=== PATIENT | male | born 1985 | race Caucasian/White ===

== ENCOUNTER 2016-06-26 15:06 | Emergency (ER) | payer OTHER ==
[2016-06-26] MEDS ORDERED: Ativan 2 MG/1 ML VIAL IV ONE (15:28)
[2016-06-26] MEDS ORDERED: solu-MEDROL 125 MG IV ONE (15:29)
[2016-06-26] MEDS ORDERED: DUONEB 0.5-3 MG/3 ml Neb IH ONE ×2 (15:29→15:39)
[2016-06-26] MEDS ORDERED: Ativan 2 MG/1 ML VIAL ONE (15:32)
[2016-06-26] MEDS ORDERED: solu-MEDROL 125 MG ONE (15:33)
--- NOTE | 2016-06-26 15:35 | ERPHSYRPT ---
- History of Present Illness Time Seen by Provider: 06/26/16 15:22 Source: patient Patient Subjective Stated Complaint: PT REPORTS PRODUCTIVE COUGH WORSENING OVER LAST FEW WEEKS-DENIES FEVER-REPORTS BROWN TO YELLOW SPUTUM-REPORTS CHRONIC BACK PAIN THAT IS NORMAL FOR PT Triage Nursing Assessment: PT PINK WARM ET DRY-WHEEZES NOTED THROUGHOUT-NO RETRACTIONS NOTED-PT AMBULATORY WITH NO DIFFICULTY Physician History: CC: wheezing Hx: 30 y/o male smoker with hx of asthma. He has 2 week of cough, wheezing and increased shortness of breath. No fever or chills. He has hx of anxiety. Uses nebs at home. Hx of HTN that is treated per Dr Ramos. Allergies/Adverse Reactions: No Known Drug Allergies Allergy (Verified 06/26/16 15:11) Home Medications: Lisinopril 10 mg [Zestril 10 MG] 10 mg PO DAILY 06/04/16 [History] Hx Tetanus, Diphtheria Vaccination/Date Given: No Hx Influenza Vaccination/Date Given: No Hx Pneumococcal Vaccination/Date Given: No Immunizations Up to Date: Yes - Review of Systems Constitutional: Malaise, No Fever, No Chills Eyes: No Symptoms Ears, Nose, & Throat: No Symptoms Respiratory: Cough, Dyspnea, Wheezing Cardiac: No Chest Pain Abdominal/Gastrointestinal: No Abdominal Pain, No Nausea, No Vomiting Genitourinary Symptoms: No Dysuria Skin: No Rash Neurological: No Headache All Other Systems: Reviewed and Negative - Past Medical History Pertinent Past Medical History: Yes Neurological History: Migraines ENT History: No Pertinent History Cardiac History: Hypertension Respiratory History: Asthma Endocrine Medical History: No Pertinent History Musculoskeletal History: Degenerative Disk Disease, Osteoarthritis GI Medical History: No Pertinent History History: No Pertinent History Psycho-Social History: Anxiety, Depression Male Reproductive Disorders: No Pertinent History - Past Surgical History Past Surgical History: No Neuro Surgical History: No Pertinent History Cardiac: No Pertinent History Respiratory: No Pertinent History Gastrointestinal: No Pertinent History Genitourinary: No Pertinent History Musculoskeletal: No Pertinent History Male Surgical History: No Pertinent History - Social History Smoking Status: Current every day smoker How long have you smoked: YRS Exposure to second hand smoke: No Alcohol Use: None Drug Use: none Patient Lives Alone: No Significant Family History: no pertinent family hx - Nursing Vital Signs Nursing Vital Signs: Initial Vital Signs Temperature 98.7 F Temperature Source Oral Pulse Rate 97 Respiratory Rate 18 Blood Pressure [Right Arm] 136/78 Pain Intensity 0 - Physical Exam General Appearance: alert Eye Exam: PERRL/EOMI Neck Exam: normal inspection, non-tender, supple Respiratory Exam: wheezing, No respiratory distress Cardiovascular/Chest Exam: normal heart sounds, regular rate/rhythm Abdominal/Gastrointestinal Exam: soft, No tenderness, No distention Extremity Exam: non-tender, normal range of motion Neurologic Exam: alert, oriented x 3, cooperative, sensation nml, No motor deficits Skin Exam: warm, dry, No rash SpO2 Interpretation: normal SpO2: 98 Oxygen Delivery: Room Air - Course Nursing assessment & vital signs reviewed: Yes - Radiology Exams cxr X-ray Interpretation: Reviewed by me, Negative Ordered Tests: Active Orders 24 hr Category Date Time Status IV Insertion STAT Care 06/26/16 15:28 Active CHEST 2 VIEWS (PA AND LAT) Stat Exams 06/26/16 15:29 Taken BMP Stat Lab 06/26/16 15:15 Completed CBC W DIFF Stat Lab 06/26/16 15:15 Completed Peak Expiratory Flow Rate ONCE RT 06/26/16 15:29 Completed Respiratory Nebulizer STAT RT 06/26/16 15:30 Completed Medication Summary Discontinued Medications Generic Name Dose Route Start Last Admin Trade Name Freq PRN Reason Stop Dose Admin Albuterol/Ipratropium 3 ml 06/26/16 15:29 06/26/16 15:56 Duoneb 0.5-3 Mg/3 Ml Neb IH 06/26/16 15:30 3 ml STAT ONE Administration Albuterol/Ipratropium Confirm 06/26/16 15:39 Duoneb 0.5-3 Mg/3 Ml Neb Administered 06/26/16 15:40 Dose 3 ml IH .STK-MED ONE Lorazepam 1 mg 06/26/16 15:28 06/26/16 15:37 Ativan 2 Mg/1 Ml Vial IV 06/26/16 15:29 1 mg STAT ONE Administration Lorazepam Confirm 06/26/16 15:32 Ativan 2 Mg/1 Ml Vial Administered 06/26/16 15:33 Dose 2 mg .ROUTE .STK-MED ONE Methylprednisolone Sodium Succinate 125 mg 06/26/16 15:29 06/26/16 15:37 Solu-Medrol 125 Mg IV 06/26/16 15:30 125 mg STAT ONE Administration Methylprednisolone Sodium Succinate Confirm 06/26/16 15:33 Solu-Medrol 125 Mg Administered 06/26/16 15:34 Dose 125 mg .ROUTE .STK-MED ONE Lab/Rad Data: Laboratory Result Diagrams 06/26/16 15:15 06/26/16 15:15 Laboratory Results 06/26/16 06/26/16 Range/Units 15:15 15:15 WBC 11.4 H (4.0-10.5) K/mm3 RBC 5.25 (4.1-5.6) M/mm3 Hgb 16.1 (12.5-18.0) gm/dl Hct 44.9 (42-50) % MCV 85.5 (78-100) fl MCH 30.7 (26-32) pg MCHC 35.9 (32-36) g/dl RDW 12.7 (11.5-14.0) % Plt Count 352 (150-450) K/mm3 MPV 8.7 (6-9.5) fl Gran % 49.3 (36.0-66.0) % Lymphocytes % 31.3 (24.0-44.0) % Monocytes % 10.9 (0.0-12.0) % Eosinophils % 7.8 H (0.00-5.0) % Basophils % 0.7 (0.0-0.4) % Basophils # 0.08 (0-0.4) Sodium 137 (136-145) mEq/L Potassium 3.5 (3.5-5.1) mEq/L Chloride 99 (98-107) mEq/L Carbon Dioxide 29.1 (21-32) mEq/L Anion Gap 12.6 (5-15) MEQ/L BUN 10 (9-20) mg/dL Creatinine 0.96 (0.55-1.30) mg/dl Estimated GFR > 60 ML/MIN Glucose 91 (70-110) MG/DL Calcium 9.0 (8.5-10.1) mg/dL - Progress Progress Note: 06/26/16 16:40 PEFR over 500. Good air exchange after neb. Will release with instr. Counseled pt/family regarding: lab results, diagnosis, need for follow-up, rad results - Departure Time of Disposition: 16:40 Departure Disposition: Home Clinical Impression: Acute asthmatic bronchitis Condition: Stable Critical Care Time: No Referrals: BARRY RAMOS [Primary Care Provider] - Instructions: Asthma -- Adult, Bronchitis Additional Instructions: Use your nebs every 4 hours as instructed. Stop smoking. Rx dozycycline. Rx medrol dose pack. Follow up next week with Dr Ramos. No driving tonite. Prescriptions: Doxycycline Hyclate [Vibramycin] 1 cap PO BID #20 capsule Methylprednisolone Packet [Medrol Dosepack] 4 mg PO UD #30 packet
[2016-06-26 15:45] LABS: BASOPHIL % 0.7 % (0.0-0.4); Eosinophil % 7.8 % (0.00-5.0); Granulocytes % 49.3 % (36.0-66.0); Lymphocytes % 31.3 % (24.0-44.0); Mean Cell Volume 85.5 fl (78-100); Mean Corpuscular Hemoglobin 30.7 pg (26-32); Mean Platelet Volume 8.7 fl (6-9.5); Monocytes % 10.9 % (0.0-12.0); Platelet Count 352 K/mm3 (150-450); Red Blood Count 5.25 M/mm3 (4.1-5.6); Red Cell Distribution Width 12.7 % (11.5-14.0); White Blood Count 11.4 K/mm3 (4.0-10.5)
[2016-06-26 16:03] LABS: ANION GAP 12.6 MEQ/L (5-15); BLOOD UREA NITROGEN 10 mg/dL (9-20); CHLORIDE 99 mEq/L (98-107); Carbon Dioxide 29.1 mEq/L (21-32); Glucose 91 MG/DL (70-110); Potassium 3.5 mEq/L (3.5-5.1); SODIUM 137 mEq/L (136-145)
[2016-06-26 16:57] VITALS: BP 121/81; PULSE 83; O2SAT 94
--- NOTE | 2016-06-26 19:23 | XRAY ---
Indication: Short of breath, cough, and wheezing. Asthma. Comparison: March 22, 2015 PA/lateral chest again demonstrates normal heart, lungs, and bony thorax.
== END 2016-06-26 16:57 | disposition home or self-care (01) ==
LOC: ED 15:06
DX: J45.909 Unspecified asthma, uncomplicated (principal)
CPT/HCPCS: 36000; 36415; 71020; 80048; 85025; 94150; 94640; 96374; 96375; 99283; J2060; J2930

== ENCOUNTER 2016-10-19 09:17 | Emergency (ER) | payer OTHER ==
[2016-10-19] MEDS ORDERED: DUONEB 0.5-3 MG/3 ml Neb IH ONE ×2 (09:38→09:40)
[2016-10-19] MEDS ORDERED: solu-MEDROL 125 MG IV ONE (09:38)
--- NOTE | 2016-10-19 09:43 | ERPHSYRPT ---
- History of Present Illness Time Seen by Provider: 10/19/16 09:37 Source: patient Exam Limitations: no limitations Patient Subjective Stated Complaint: PT REPORTS PRODUCTIVE COUGH UNKOWN COLOR OF SPUTUM FOR A FEW DAYS-STATES THERE IS PAIN TO RIBS ET CHEST-REPORTS SOB- INCREASING WITH MOVEMENT-UNSURE OF FEVER Triage Nursing Assessment: PT PALE DIAPHOETIC ET WARM UPON ARRIVAL-PURSED LIP BREATHING-RESP LABORED-WHEEZES NOTED THROUGHOUT-PT ABLE TO SPEAK IN COMPLETE SENTENCES-PT AMBULATORY TO ED ROOM Physician History: The patient is a 30-year-old male who complains of a cough for several days with low rib pain on each side in the front especially when he coughs. Yesterday he went to bed early at 2 PM and woke up at 6 PM with rib pain. He went back to sleep and woke up at midnight again with rib pain. He went back to sleep again and woke up at 8 AM today with severe rib pain. He smoked until 3 days ago. He has asthma. The cough is productive but he does not know the color of the sputum. His past medical history is significant for chronic back pain, asthma, and hypertension. Timing/Duration: day(s) (3) Cough Quality/Degree: severe Possible Cause: occasional episodes Modifying Factors: Improves With: albuterol inhaler, coughing, deep breath, exertion Associated Symptoms: cough, shortness of breath, wheezing Allergies/Adverse Reactions: NSAIDS (Non-Steroidal Anti-Inflamma Allergy (Intermediate, Verified 10/19/16 09: 26) BLEEDING Home Medications: Lisinopril 10 mg [Zestril 10 MG] 10 mg PO DAILY 06/04/16 [History] Hx Tetanus, Diphtheria Vaccination/Date Given: No Hx Influenza Vaccination/Date Given: No Hx Pneumococcal Vaccination/Date Given: No Immunizations Up to Date: Yes - Review of Systems Constitutional: No Fever, No Chills Eyes: No Symptoms Ears, Nose, & Throat: No Symptoms Respiratory: Cough Cardiac: Chest Pain (rib pain) Abdominal/Gastrointestinal: No Abdominal Pain, No Nausea, No Vomiting, No Diarrhea Genitourinary Symptoms: No Dysuria Musculoskeletal: No Back Pain, No Neck Pain Skin: No Rash Neurological: No Dizziness, No Focal Weakness, No Sensory Changes Psychological: No Symptoms Endocrine: No Symptoms Hematologic/Lymphatic: No Symptoms Immunological/Allergic: No Symptoms All Other Systems: Reviewed and Negative - Past Medical History Pertinent Past Medical History: Yes Neurological History: Migraines ENT History: No Pertinent History Cardiac History: Hypertension Respiratory History: Asthma Endocrine Medical History: No Pertinent History Musculoskeletal History: Degenerative Disk Disease, Osteoarthritis GI Medical History: No Pertinent History History: No Pertinent History Psycho-Social History: Anxiety, Depression Male Reproductive Disorders: No Pertinent History - Past Surgical History Past Surgical History: No Neuro Surgical History: No Pertinent History Cardiac: No Pertinent History Respiratory: No Pertinent History Gastrointestinal: No Pertinent History Genitourinary: No Pertinent History Musculoskeletal: No Pertinent History Male Surgical History: No Pertinent History - Social History Smoking Status: Former smoker How long have you smoked: YRS Exposure to second hand smoke: No Alcohol Use: None Drug Use: none Patient Lives Alone: No Significant Family History: no pertinent family hx - Nursing Vital Signs Nursing Vital Signs: Initial Vital Signs Temperature 97.9 F Temperature Source Oral Pulse Rate 81 Respiratory Rate 20 Blood Pressure [] 137/78 Pain Intensity 4 - Physical Exam General Appearance: mild distress, anxiety Eye Exam: PERRL/EOMI, eyes nml inspection Ears, Nose, Throat Exam: normal ENT inspection, TMs normal, pharynx normal, moist mucous membranes Neck Exam: normal inspection, non-tender, supple, full range of motion Respiratory Exam: chest tenderness (bilateral inferior anterior rib tenderness) , prolonged expirations, wheezing Cardiovascular Exam: regular rate/rhythm, normal heart sounds Gastrointestinal/Abdomen Exam: soft, No tenderness Rectal Exam: not done Back Exam: normal inspection, No CVA tenderness, No vertebral tenderness Extremity Exam: normal inspection, normal range of motion Neurologic Exam: alert, oriented x 3, cooperative, normal mood/affect, sensation nml, No motor deficits Skin Exam: normal color, warm, dry, No rash Lymphatic Exam: No adenopathy SpO2 Interpretation: normal SpO2: 98 Oxygen Delivery: Room Air - Course Nursing assessment & vital signs reviewed: Yes EKG Interpreted by Me: Sinus Rhythm (Isak he that he was coming in), NORMAL AXIS, NORMAL INTERVALS, NORMAL QRS, NORMAL ST-T - Radiology Exams Chest X-ray Interpretation: Teleradiologist Report, Negative (per Dr Phelps) Ordered Tests: Active Orders 24 hr Category Date Time Status EKG-ER Only STAT Care 10/19/16 09:38 Active IV Insertion STAT Care 10/19/16 09:38 Active CHEST 2 VIEWS (PA AND LAT) Stat Exams 10/19/16 09:38 Completed CBC W DIFF Stat Lab 10/19/16 09:49 Completed CMP Stat Lab 10/19/16 09:49 Completed TROPONIN Stat Lab 10/19/16 09:49 Completed Respiratory Nebulizer STAT RT 10/19/16 09:39 Completed Respiratory Nebulizer STAT RT 10/19/16 10:11 Completed Medication Summary Discontinued Medications Generic Name Dose Route Start Last Admin Trade Name Izabel PRN Reason Stop Dose Admin Albuterol Sulfate 2.5 mg 10/19/16 10:10 10/19/16 10:26 Proventil 2.5 Mg/3 Ml Neb IH 10/19/16 10:11 2.5 mg STAT ONE Administration Albuterol Sulfate Confirm 10/19/16 10:25 Proventil 2.5 Mg/3 Ml Neb Administered 10/19/16 10:26 Dose 2.5 mg IH .STK-MED ONE Albuterol/Ipratropium 3 ml 10/19/16 09:38 10/19/16 09:41 Duoneb 0.5-3 Mg/3 Ml Neb IH 10/19/16 09:39 3 ml STAT ONE Administration Albuterol/Ipratropium Confirm 10/19/16 09:40 Duoneb 0.5-3 Mg/3 Ml Neb Administered 10/19/16 09:41 Dose 3 ml IH .STK-MED ONE Methylprednisolone Sodium Succinate 125 mg 10/19/16 09:38 10/19/16 10:07 Solu-Medrol 125 Mg IV 10/19/16 09:39 125 mg STAT ONE Administration Methylprednisolone Sodium Succinate Confirm 10/19/16 10:00 Solu-Medrol 125 Mg Administered 10/19/16 10:01 Dose 125 mg .ROUTE .STK-MED ONE Lab/Rad Data: Laboratory Result Diagrams 10/19/16 09:49 10/19/16 09:49 Laboratory Results 10/19/16 10/19/16 Range/Units 09:49 09:49 WBC 11.0 H (4.0-10.5) K/mm3 RBC 5.09 (4.1-5.6) M/mm3 Hgb 15.5 (12.5-18.0) gm/dl Hct 44.2 (42-50) % MCV 86.8 (78-100) fl MCH 30.5 (26-32) pg MCHC 35.1 (32-36) g/dl RDW 12.5 (11.5-14.0) % Plt Count 301 (150-450) K/mm3 MPV 9.1 (6-9.5) fl Gran % 52.4 (36.0-66.0) % Lymphocytes % 29.8 (24.0-44.0) % Monocytes % 9.5 (0.0-12.0) % Eosinophils % 7.8 H (0.00-5.0) % Basophils % 0.5 (0.0-0.4) % Basophils # 0.06 (0-0.4) Sodium 139 (136-145) mEq/L Potassium 3.5 (3.5-5.1) mEq/L Chloride 105 (98-107) mEq/L Carbon Dioxide 24.0 (21-32) mEq/L Anion Gap 13.3 (5-15) MEQ/L BUN 8 L (9-20) mg/dL Creatinine 0.99 (0.55-1.30) mg/dl Estimated GFR > 60 ML/MIN Glucose 114 H (70-110) MG/DL Calcium 9.4 (8.5-10.1) mg/dL Total Bilirubin 0.4 (0.2-1.0) mg/dL AST 22 (15-37) U/L ALT 42 (12-78) U/L Alkaline Phosphatase 57 (46-116) U/L Troponin I < 0.017 (0.000-0.056) ng/ml Serum Total Protein 7.5 (6.4-8.2) gm/dL Albumin 3.9 (3.4-5.0) g/dL - Progress Progress: improved Air Movement: good Progress Note: 10/19/16 10:57 After Solu-Medrol 125 mg IV, DuoNeb, and albuterol neb, the patient is feeling better and is breathing easier. Blood Culture(s) Obtained: No Antibiotics given: Yes Counseled pt/family regarding: lab results, diagnosis, rad results - Departure Time of Disposition: 10:58 Departure Disposition: Home Clinical Impression: Bronchitis, Bronchospasm, Pleurisy Condition: Stable Critical Care Time: No Additional Instructions: You have bronchitis, bronchospasm, and pleurisy. You were given Solu-Medrol 125 mg IV, DuoNeb, and albuterol in the ER. Take Tessalon Perle 100 mg every 8 hours as needed for cough. Take doxycycline 100 mg twice a day for 10 days for cough. Take prednisone 60 mg daily for 5 days for wheezing. Take Tylenol No. 3 one to 2 tablets every 4-6 hours as needed for pain. Follow-up in 2-3 days if no improvement. Prescriptions: Benzonatate [Tessalon Perle] 100 mg PO Q8H PRN PRN #12 capsule PRN Reason: Cough Codeine Phosphate/APAP #3 [Tylenol #3 Tablet] 1 tab PO Q4-6HPRN PRN #10 tablet PRN Reason: Pain Doxycycline Hyclate [Vibramycin] 1 cap PO BID #20 capsule Prednisone 10 mg [Deltasone 10 mg] 60 mg PO DAILY #30 tablet
[2016-10-19 09:50] LABS: BASOPHIL % 0.5 % (0.0-0.4); Eosinophil % 7.8 % (0.00-5.0); Granulocytes % 52.4 % (36.0-66.0); Lymphocytes % 29.8 % (24.0-44.0); Mean Cell Volume 86.8 fl (78-100); Mean Corpuscular Hemoglobin 30.5 pg (26-32); Mean Platelet Volume 9.1 fl (6-9.5); Monocytes % 9.5 % (0.0-12.0); Platelet Count 301 K/mm3 (150-450); Red Blood Count 5.09 M/mm3 (4.1-5.6); Red Cell Distribution Width 12.5 % (11.5-14.0)
[2016-10-19] MEDS ORDERED: solu-MEDROL 125 MG ONE (10:00)
[2016-10-19] MEDS ORDERED: PROVENTIL 2.5 MG/3 ML NEB IH ONE ×2 (10:10→10:25)
--- NOTE | 2016-10-19 10:13 | XRAY ---
Indication: Cough and chest pain. Comparison: June 26, 2016. PA/lateral chest again demonstrates normal heart, lungs, and bony thorax.
[2016-10-19 10:36] LABS: ALBUMIN 3.9 g/dL (3.4-5.0); ALKALINE PHOSPHATASE 57 U/L (46-116); ANION GAP 13.3 MEQ/L (5-15); BILIRUBIN,TOTAL 0.4 mg/dL (0.2-1.0); BLOOD UREA NITROGEN 8 mg/dL (9-20); CHLORIDE 105 mEq/L (98-107); Glucose 114 MG/DL (70-110); Potassium 3.5 mEq/L (3.5-5.1); SGOT/AST 22 U/L (15-37); SGPT/ALT 42 U/L (12-78); SODIUM 139 mEq/L (136-145); Total Protein 7.5 gm/dL (6.4-8.2)
[2016-10-19 10:37] LABS: TROPONIN < 0.017 ng/ml (0.000-0.056)
[2016-10-19 11:22] VITALS: BP 118/79; PULSE 78; O2SAT 94
== END 2016-10-19 11:22 | disposition home or self-care (01) ==
LOC: ED 09:17
DX: J40 Bronchitis, not specified as acute or chronic (principal); R09.1 Pleurisy; J20.9 Acute bronchitis, unspecified; R05 Cough; R07.89 Other chest pain; I10 Essential (primary) hypertension
CPT/HCPCS: 36000; 36415; 71020; 80053; 84484; 85025; 93005; 94640; 96374; 99284; J2930; A9270-GY